=== PATIENT | male | born 1960 | race Caucasian/White ===

== ENCOUNTER → 2020-11-21 14:02 | Outpatient (CLI) | payer OTHER, SELFPAY ==
[2020-11-21 20:15] LABS: Prostate Specific Antigen 0.779 ng/mL (0.10-4.00)
== END ==
PROVIDERS: PCP Physician Assistant Medical; Visit Provider Physician Assistant Medical
DX: E29.1 Testicular hypofunction (principal); Z79.890 Hormone replacement therapy
CPT/HCPCS: 84153; 84402; 84403

== ENCOUNTER → 2020-11-28 13:11 | Outpatient (CLI) | payer OTHER, SELFPAY ==
[2020-12-05 17:52] LABS: Percent Free Testosterone 2.89 % (1.50-4.20); Testosterone Free 26.15 ng/dL (5.00-21.00)
== END ==
PROVIDERS: PCP Physician Assistant Medical; Visit Provider Physician Assistant Medical
DX: E29.1 Testicular hypofunction (principal); Z79.890 Hormone replacement therapy
CPT/HCPCS: 84402; 84403